=== PATIENT | male | born 1985 | race Caucasian/White ===

== ENCOUNTER 2016-09-22 22:54 | Emergency (ER) | payer OTHER ==
[2016-09-22 23:09] VITALS: BP 155/80; PULSE 78; RESP 18; TEMP 97.8
[2016-09-22] MEDS ORDERED: ALPRAZolam 0.5 MG TAB PO STA (23:29)
--- NOTE | 2016-09-22 23:29 | ED ---
Anxiety HPI - General Chief Complaint: Anxiety Stated Complaint: Post Flu-Insomnia Time Seen by Provider: 09/22/16 22:58 Source: patient, RN notes reviewed Mode of arrival: ambulatory - History of Present Illness Initial Comments: Patient is a 31-year-old male presents to the emergency room for evaluation of insomnia. Patient states he has a history of anxiety and PTSD. Patient states he used to take clonidine and Xanax as needed. Patient states that he discontinued taking all of his medications about 4 months ago. Patient states he's been doing well except for the past 4 nights. Patient states that he had an episode of nausea, vomiting and diarrhea for the past week and ever since then he has been unable to sleep at night. Patient states he works all day during the day and has been very irritable because he has had no sleep. Patient states that he needs something to help him go to sleep. Patient stated he tried [id number] sleep remedies with no relief of symptoms. Patient states ixny-kto-[id number] sleep remedies make him restless. Patient denies suicidal or homicidal ideations. Patient denies visual or auditory hallucinations. Patient denies chest pain, shortness breath, headache, dizziness, fevers, chills. Patient denies illicit drug use. - Related Data Home Medications: Home Medications Medication Instructions Recorded Confirmed Gabapentin 800 mg PO DAILY 08/28/15 01/16/16 Venlafaxine HCl ER [Effexor Xr] 150 mg PO BID 01/16/16 01/16/16 Previous Rx's Medication Instructions Recorded ALPRAZolam [Xanax] 0.5 mg PO BID PRN #42 tablet 12/09/15 cloNIDine HCL [Catapres] 0.3 mg PO BID #20 tablet 01/16/16 ALPRAZolam [Xanax] 0.5 mg PO DAILY PRN #2 tablet 09/22/16 Allergies/Adverse Reactions: Allergies Allergy/AdvReac Type Severity Reaction Status Date / Time tramadol AdvReac SEIZURES Verified 09/22/16 23:09 Review of Systems ROS Statement: Those systems with pertinent positive or pertinent negative responses have been documented in the HPI. ROS Other: All systems not noted in ROS Statement are negative. Past Medical History Past Medical History: Chest Pain / Angina, Hypertension Additional Past Medical History / Comment(s): seizure last 2011, June 2015 just finished suboxone reports was taking that to get off of vicodin. History of Any Multi-Drug Resistant Organisms: None Reported Past Surgical History: Orthopedic Surgery Additional Past Surgical History / Comment(s): cyst on tooth Past Anesthesia/Blood Transfusion Reactions: No Reported Reaction Past Psychological History: Anxiety, Depression, PTSD Smoking Status: Current every day smoker Past Alcohol Use History: None Reported Past Drug Use History: None Reported - Past Family History Mother Family Medical History: Hypertension General Exam - General Exam Comments Initial Comments: Sitting in exam room, anxious, talking fast Limitations: no limitations General appearance: alert, anxious Head exam: Present: atraumatic, normocephalic, normal inspection Eye exam: Present: normal appearance, PERRL, EOMI Pupils: Present: normal accommodation ENT exam: Present: normal exam Neck exam: Present: normal inspection Respiratory exam: Present: normal lung sounds bilaterally. Absent: respiratory distress Cardiovascular Exam: Present: regular rate, normal rhythm, normal heart sounds Extremities exam: Present: normal inspection Back exam: Present: normal inspection Neurological exam: Present: alert, oriented X3, CN II-XII intact, normal gait Psychiatric exam: Present: normal affect, anxious Skin exam: Present: warm, dry, intact, normal color. Absent: rash Course Vital Signs 09/22/16 23:04 Temperature 97.8 F Pulse Rate 78 Respiratory 18 Rate Blood Pressure 155/80 O2 Sat by Pulse 100 Oximetry Medical Decision Making - Medical Decision Making Patient is a 31-year-old male presents [facility] emergency room for evaluation of insomnia and anxiety. Agreed to give patient xanax while he was here. Will send patient home with a prescription of 2 more tabs of Xanax and advised patient that needs follow-up with his primary care provider if he needs further prescription for Xanax. Patient states he understands everything that was discussed with him. Return parameters discussed. Case discussed with Dr. Guido. Disposition Clinical Impression: Insomnia, Anxiety Disposition: HOME SELF-CARE Condition: Good Instructions: Insomnia (ED) Additional Instructions: Take medications as needed. Please follow-up with primary care provider. If any new symptom arises or symptoms worsen, return to ER as soon as possible. Prescriptions: ALPRAZolam [Xanax] 0.5 mg PO DAILY PRN #2 tablet PRN Reason: Insomnia Referrals: None,Stated [Primary Care Provider] - 1-2 days Time of Disposition: 23:28
== END 2016-09-22 23:41 | disposition home or self-care (01) ==
LOC: EC 22:54
DX: G47.00 Insomnia, unspecified (principal); F41.9 Anxiety disorder, unspecified; Z79.899 Other long term (current) drug therapy; Z88.5 Allergy status to narcotic agent; F32.9 Major depressive disorder, single episode, unspecified; F17.200 Nicotine dependence, unspecified, uncomplicated
CPT/HCPCS: 99283

== ENCOUNTER 2017-12-15 16:04 | Emergency (ER) | payer OTHER ==
--- NOTE | 2017-12-15 16:50 | ED ---
General Adult HPI - General Chief complaint: Abdominal Pain Stated complaint: Abd Pain Time Seen by Provider: 12/15/17 16:32 Source: patient Mode of arrival: ambulatory Limitations: no limitations - History of Present Illness Initial comments: Jarvis is a 32-year-old male who presents to the emergency department today for evaluation of chronic constipation. Patient states that over the past year he has been suffering with constipation. He states that one year ago he decreased his Suboxone dose, however he has had persistent constipation. He reports that he takes Dulcolax and has when necessary suppositories. Patient reports over the past 3 weeks he has felt more constipated than usual. He states that he has been taking laxatives more regularly and that he had a very small firm bowel movement this morning but it was his first in 5 days. Patient's states that he is concerned that he continues to get constipated. Patient reports is been eating and drinking as usual. He's had no nausea or vomiting. He states that 2 nights ago he did have an episode of abdominal pain but did not feel the need to be evaluated that time. Patient denies any previous abdominal surgeries or bowel obstructions. He denies any personal or family history of ulcerative colitis or Crohn's disease or any other inflammatory or irritable bowel diseases. Patient does state that his father had a cancerous tumor in his colon which was removed when he was 50 years old. Patient states that he has been advised to follow up with gastroenterology in the past, however he has not pursued this as it is inconvenient to do so through the [facility]. Patient states that he tries to eat a healthy diet, he exercises regularly and drinks Gatorade and water. He does admit to eating very minimal fruits and occasional vegetables. He does state that in the past year he has noticed that when he eats more fruits he does tend to have more regular bowel movements. - Related Data Home Medications Medication Instructions Recorded Confirmed Gabapentin 800 mg PO DAILY 08/28/15 12/15/17 Venlafaxine HCl ER [Effexor Xr] 150 mg PO BID 01/16/16 12/15/17 Previous Rx's Medication Instructions Recorded ALPRAZolam [Xanax] 0.5 mg PO BID PRN #42 tablet 12/09/15 cloNIDine HCL [Catapres] 0.3 mg PO BID #20 tablet 01/16/16 ALPRAZolam [Xanax] 0.5 mg PO DAILY PRN #2 tablet 09/22/16 Polyethylene Glycol 3350 [Miralax] 17 gm PO DAILY #527 gm 12/15/17 Allergies Allergy/AdvReac Type Severity Reaction Status Date / Time tramadol AdvReac SEIZURES Verified 12/15/17 16:11 Review of Systems ROS Statement: Those systems with pertinent positive or pertinent negative responses have been documented in the HPI. ROS Other: All systems not noted in ROS Statement are negative. Constitutional: Denies: fever Respiratory: Denies: cough Cardiovascular: Denies: chest pain Endocrine: Denies: fatigue Gastrointestinal: Reports: abdominal pain, constipation. Denies: diarrhea Genitourinary: Denies: urgency, dysuria Musculoskeletal: Denies: back pain Skin: Denies: rash, lesions Neurological: Denies: headache, weakness Hematological/Lymphatic: Denies: easy bleeding Past Medical History Past Medical History: Chest Pain / Angina, Hypertension Additional Past Medical History / Comment(s): seizure last 2011, June 2015 just finished suboxone reports was taking that to get off of vicodin. History of Any Multi-Drug Resistant Organisms: None Reported Past Surgical History: Orthopedic Surgery Additional Past Surgical History / Comment(s): cyst on tooth Past Anesthesia/Blood Transfusion Reactions: No Reported Reaction Past Psychological History: Anxiety, Depression, PTSD Smoking Status: Current every day smoker Past Alcohol Use History: None Reported Past Drug Use History: None Reported - Past Family History Mother Family Medical History: Hypertension General Exam Limitations: no limitations General appearance: alert, in no apparent distress Head exam: Present: atraumatic, normocephalic Eye exam: Present: normal appearance, PERRL ENT exam: Present: normal exam Neck exam: Present: normal inspection Respiratory exam: Present: normal lung sounds bilaterally. Absent: respiratory distress Cardiovascular Exam: Present: regular rate, normal rhythm GI/Abdominal exam: Present: soft, normal bowel sounds. Absent: distended, tenderness, guarding, rebound, rigid, mass Rectal exam: Present: normal inspection, normal rectal tone, hemorrhoids, normal prostate. Absent: fecal impaction, mass, tenderness Extremities exam: Present: normal inspection Neurological exam: Present: alert, oriented X3 Psychiatric exam: Present: normal affect, normal mood Skin exam: Present: warm, dry, intact Course Vital Signs 12/15/17 12/15/17 16:10 18:00 Temperature 98.7 F 98.3 F Pulse Rate 88 71 Respiratory 18 20 Rate Blood Pressure 140/92 132/56 O2 Sat by Pulse 98 98 Oximetry Medical Decision Making - Medical Decision Making The patient was seen and evaluated, history was obtained from the patient Patient with episodes of constipation, trying multiple [id number]-[id number]-[id number] medications with minimal help Patient very anxious requesting an x-ray to evaluate for possible bowel obstruction. I have minimal concern however we'll order a KUB x-ray KUB with moderate stool, no bowel obstruction Rectal exam with no stool in rectal vault, small external hemorrhoids, no palpable mass or abnormality Xray and physical exam results were discussed with the patient, advised the patient this constipation is likely multifactorial relating to being on Suboxone , high carbohydrate high-protein but low fiber diet, relative dehydration considering that he drinks fluids but exercises a significant amount. Eyes the patient to increase his water intake, increase his fiber intake by eating more fresh fruits and vegetables, try one capful of MiraLAX daily and [facility]. I advised the patient even if his symptoms resolve he needs to follow-up for GI evaluation because his father had colon cancer to relatively young age. All questions pertaining to care were answered to the best of my ability the patient was discharged home in stable condition. Disposition Clinical Impression: Abdominal pain Disposition: HOME SELF-CARE Condition: Good Instructions: Abdominal Pain (ED) Prescriptions: Polyethylene Glycol 3350 [Miralax] 17 gm PO DAILY #527 gm Is patient prescribed a controlled substance at d/c from ED?: No Referrals: None,Stated [Primary Care Provider] - 1-2 days
--- NOTE | 2017-12-15 16:56 | XR ---
EXAMINATION TYPE: XR KUB DATE OF EXAM: 12/15/2017 4:53 PM CLINICAL HISTORY: Abdominal pain and constipation TECHNIQUE: Single upright image of the abdomen is obtained. COMPARISON: None. FINDINGS: Moderate degree of retained colonic stool is seen within the splenic flexure and descending colon as well as sigmoid colon. Stool is seen in the rectal vault. No dilated small or large bowel i s identified. No pneumoperitoneum. Liver is elongated extending towards the iliac crest but does not meet radiographic criteria for hepatomegaly. Osseous structures are intact with a very mild levoscoli otic curvature of the lumbar spine that may be positional in nature. No suspicious calcifications wit hin the abdomen. IMPRESSION: Moderate amount retained left hemicolonic stool in an overall nonobstructive bowel gas pa ttern.
[2017-12-15 18:25] VITALS: BP 132/56; PULSE 71; RESP 20; TEMP 98.3
== END 2017-12-15 18:00 | disposition home or self-care (01) ==
LOC: EC 16:04
DX: R10.9 Unspecified abdominal pain (principal); K59.00 Constipation, unspecified; G40.909 Epilepsy, unspecified, not intractable, without status epilepticus; F32.9 Major depressive disorder, single episode, unspecified; F41.9 Anxiety disorder, unspecified; F43.10 Post-traumatic stress disorder, unspecified; F17.200 Nicotine dependence, unspecified, uncomplicated; Z79.899 Other long term (current) drug therapy; Z88.6 Allergy status to analgesic agent
CPT/HCPCS: 74018; 99284